=== PATIENT | female | born 2000 | race Caucasian/White ===

== ENCOUNTER 2023-04-28 16:33 | Emergency (ER) | payer OTHER, SELFPAY ==
[2023-04-28 16:37] VITALS: BP 105/73; PULSE 90; RESP 18; TEMP 36.8; O2SAT 99; BMI 19.1
--- NOTE | 2023-04-28 16:55 | ED_ITS ---
HPI - General Adult General Chief complaint: Nausea/Vomiting Stated complaint: Dehydration--vomiting, diarrhea Time Seen by Provider: 04/28/23 16:43 History of Present Illness HPI narrative: patient has had diarrhea over 20 times since 0500. has been vomiting multiple times and is feeling dehydrated. hx of bad heartburn. takes famotidine daily. 22-year-old young woman presenting to the emergency department complaint of nausea vomiting diarrhea. Having clenching abdominal pain. She is thinks she is probably dehydrated. Does have a headache. Underlying history of ?bad heartburn?. Does take regular famotidine. Did try Zofran earlier today. Seemed to help temporarily. Has felt warm but no measured fever. Laid out on a cement floor at 1 point I think to feel cooler. She is not describing any hematemesis or hematochezia. Unknown exposures. Related Data Home Medications Medication Instructions Recorded Confirmed famotidine 40 mg tablet (Pepcid) 40 mg PO QHS 04/28/23 04/28/23 sertraline 50 mg tablet 50 mg PO DAILY 04/28/23 04/28/23 Allergies Allergy/AdvReac Type Severity Reaction Status Date / Time Penicillins Allergy Mild Rash Verified 04/28/23 16:42 Review of Systems Status of ROS: Reports: 6 or more systems reviewed and unremarkable except as noted in History and below [facility] Social History Smoking Status: Never smoker How often do you have a drink containing alcohol: never AUDIT-C Alcohol total score: 0 Non-prescribed substance use: denies use service: No Exam Narrative: Exam Narrative: Slim. Pleasant. Easily conversant. Looks like she does not feel very good though. Mild petechiae under her eyes. Not inconsistent with vomiting. Oropharynx is sticky. Not erythematous. Is breathing easily. Lungs appear to be clear. Heart in elevated rate in a regular rhythm. Abdomen is flat soft quite warm and diffusely little tender. Extremities are well perfused without edema. Skin is noted rather warm. No rashes apparent other than as mentioned above. Const: Vital Signs, click to edit/add: Vital Signs - 24 hr 04/28/23 16:37 Temperature 98.3 F Pulse Rate [Right Pulse Oximeter] 90 Respiratory Rate 18 Blood Pressure [Ri ght Upper Arm] 105/73 Pulse Oximetry 99 Oxygen Delivery Me thod Room Air Documenting provider has reviewed patient's vital signs: yes Course Vital Signs Vital signs: Initial Vital Signs Temperature 98.3 F 04/28/23 16:37 Temperature Source Temporal Artery Scan 04/28/23 16:37 Pulse Rate 90 04/28/23 16:37 Respiratory Rate 18 04/28/23 16:37 Blood Pressure 105/73 04/28/23 16:37 Blood Pressure Mean 83 04/28/23 16:37 Blood Pressure Position Sitting 04/28/23 16:37 Pulse Oximetry 99 04/28/23 16:37 Oxygen Delivery Method Room Air 04/28/23 16:37 Vital Signs Temperature 98.3 F 04/28/23 16:37 Pulse Rate 90 04/28/23 16:37 Respiratory Rate 18 04/28/23 16:37 Blood Pressure 105/73 04/28/23 16:37 Pulse Oximetry 99 04/28/23 16:37 Oxygen Delivery Method Room Air 04/28/23 16:37 Temperature 98.3 F 04/28/23 16:37 Pulse Rate 90 04/28/23 16:37 Respiratory Rate 18 04/28/23 16:37 Blood Pressure 105/73 04/28/23 16:37 Pulse Oximetry 99 04/28/23 16:37 Oxygen Delivery Method Room Air 04/28/23 16:37 Medical Decision Making MDM Narrative Medical decision making narrative: At this point are placing IV. Will check labs but I would anticipate treatment symptomatically with IV fluids and antiemetic. Likely viral etiology as without other problems. On reassessment is improved. Nausea markedly better. Still would appreciate some treatment for epigastric area discomfort. I have ordered liquid lidocaine with Maalox for the equivalent of a GI cocktail. Is receiving a total of 2 L normal saline. Labs are reassuring. GI cocktail cause some discomfort and not really helping the epigastrium. Has ambulated though to the bathroom. Will trial a little apple juice. Lab Data Lab results reviewed: Yes I reviewed the patient's lab results Labs: Lab Results 04/28/23 04/28/23 Range/Units 17:50 18:00 WBC 10.29 (4.50-11.00) K/uL RBC 5.29 H (4.00-5.20) m/uL Hgb 14.6 (12.0-16.0) gm/dL Hct 44.4 (33.0-51.0) % MCV 84 (80-100) fL MCH 28 (26-34) pg MCHC 33 (32-36) gm/dL RDW Coeff of Jose 13.7 (11.5-15.5) % Plt Count 238 (140-440) K/uL Neut % (Auto) 93.1 H (42.0-72.0) % Lymph % (Auto) 4.0 L (20-44) % Webb % (Auto) 2.6 (0.0-11.0) % Eos % (Auto) 0.1 (0.0-7.0) % Baso % (Auto) 0.1 (0.0-3.0) % Neut # (Auto) 9.60 H (1.7-7.0) K/uL Lymph # (Auto) 0.40 L (0.90-2.90) K/uL Webb # (Auto) 0.30 (0.00-0.90) K/UL Eos # (Auto) 0.01 (0.00-0.50) K/uL Baso # (Auto) 0.01 (0.00-0.30) K/uL Abs Immat Gran (auto) 0.01 (0.00-0.30) K/uL Imm/Tot Granulo (auto) 0.1 % Sodium 138 (135-149) mmol/L Potassium 3.9 (3.6-5.1) mmol/L Chloride 105 (96-114) mmol/L Carbon Dioxide 19 L (20-32) mmol/L BUN 14 (5-24) mg/dL Creatinine 0.6 (0.5-1.5) mg/dL Estimated Creat Clear 122.14 Estimated GFR 131 ml/min Glucose 97 (60-115) mg/dL Calcium 9.5 (8.4-10.6) mg/dL C-Reactive Protein 0.7 (0.5-1.0) mg/dL SARS-CoV-2 (PCR) Negative SARS-CoV-2 (Negative) Influenza Type A (PCR) Negative PCR FLU A (Negative) Influenza Type B (PCR) Negative PCR FLU B (Negative) Discharge Plan Discharge Clinical Impression: Gastroenteritis, GERD (gastroesophageal reflux disease), Dehydration Patient Disposition: Home w/ Parent or Adult Condition: Improved Additional Instructions: Focus on hydration. Popsicles and Jell-O count. Slow advance of diet over the next 36 hours or so. Diluted juices, soup broth, crackers, toast, rice. Restart famotidine as soon as possible. Zofran from [facility]. Return for marked increase in pain, intractable vomiting, associated fever. Can try loperamide for diarrhea as long as no fever or blood in your stool. Prescriptions: No Action sertraline 50 mg tablet 50 mg PO DAILY famotidine [Pepcid] 40 mg tablet 40 mg PO QHS Follow Up/Referrals: Stephanie Maier MD [Referring] - Stand Alone Forms: [email or web address] Info Instructions
[2023-04-28] MEDS: 0.9 % SODIUM CHLORIDE 1000 ml 1,000 ML 6000 ML IV ×2 (17:53→18:51)
[2023-04-28 18:07] LABS: Basophils Absolute Auto 0.01 K/uL (0.00-0.30); Basophils Percent Auto 0.1 % (0.0-3.0); Eosinophils Absolute Auto 0.01 K/uL (0.00-0.50); Eosinophils Percent Auto 0.1 % (0.0-7.0); Hematocrit 44.4 % (33.0-51.0); Hemoglobin* 14.6 gm/dL (12.0-16.0); Immature Granulocytes Abs Auto 0.01 K/uL (0.00-0.30); Immature Granulocytes Pct Auto 0.1 %; Mean Corpuscular HGB Conc 33 gm/dL (32-36); Mean Corpuscular Hemoglobin 28 pg (26-34); Mean Corpuscular Volume 84 fL (80-100); Monocytes Percent Auto 2.6 % (0.0-11.0); Neutrophils Percent Auto 93.1 % (42.0-72.0); Platelet Count* 238 K/uL (140-440); RDW Coefficient of Variation % 13.7 % (11.5-15.5); Red Blood Count 5.29 m/uL (4.00-5.20); Slide Review Reflex No; White Blood Count* 10.29 K/uL (4.50-11.00)
[2023-04-28] MEDS: ONDANSETRON 2 MG/ML inj 4 MG IVP (18:09)
[2023-04-28 18:20] LABS: Chloride* 105 mmol/L (96-114); Potassium* 3.9 mmol/L (3.6-5.1); Sodium* 138 mmol/L (135-149)
[2023-04-28 18:23] LABS: Creatinine* 0.6 mg/dL (0.5-1.5); Est. Creatinine Clearance* 122.14; Estimated Glomerular Filt Rate 131 ml/min
[2023-04-28 18:24] LABS: Blood Urea Nitrogen* 14 mg/dL (5-24); Calcium* 9.5 mg/dL (8.4-10.6); Carbon Dioxide* 19 mmol/L (20-32); Glucose* 97 mg/dL (60-115)
[2023-04-28 18:27] LABS: C Reactive Protein* 0.7 mg/dL (0.5-1.0)
[2023-04-28 18:42] LABS: PCR FLU A Negative PCR FLU A (Negative); PCR FLU B Negative PCR FLU B (Negative)
[2023-04-28 18:43] LABS: SARS PCR* Negative SARS-CoV-2 (Negative)
[2023-04-28] MEDS: lidocaine HCL 4 % TOP SOLN 50 ML BOTTLE 7.5 ML PO (19:32)
[2023-04-28] MEDS: MAG HYDROX/ALUMINUM HYD/SIMETH 30 ML ORAL.SUSP 20 ML PO (19:33)
== END 2023-04-28 20:26 | disposition home or self-care (01) ==
PROVIDERS: Emergency Provider Family Medicine
DX: K52.9 Noninfective gastroenteritis and colitis, unspecified (principal); K21.9 Gastro-esophageal reflux disease without esophagitis
CPT/HCPCS: 36415; 80048; 85025; 86140; 87631; 96374; 99283; 99284; A9270; J2405; J7030